=== PATIENT | male | born 1960 | race Caucasian/White ===

== ENCOUNTER → 2023-11-06 09:54 | Outpatient (CLI) | payer OTHER, SELFPAY ==
--- NOTE | 2023-11-06 09:55 | DI.RAD.S_ITS ---
PROCEDURE: XR KNEE LT 3V INDICATIONS: pain/int swelling x 6 weeks TECHNIQUE: 3 views of the knee were acquired. COMPARISON: None. FINDINGS: Bones: No fractures or dislocations. No suspicious bony lesions. There is mild joint space narrowing in the medial compartment and patellofemoral joint. Soft tissues: Small joint effusion. No suspicious soft tissue calcifications. IMPRESSION: 1. No evidence for an acute fracture or dislocation. 2. There is mild joint space narrowing in the medial compartment and patellofemoral joint. Dictated by: Dominik Gomez M.D. on 11/06/2023 at 10:40 Approved by: Dominik Gomez M.D. on 11/06/2023 at 10:45
== END ==
PROVIDERS: PCP Family Medicine; Referring Provider Physician Assistant; Visit Provider Physician Assistant
DX: M25.562 Pain in left knee (principal)
CPT/HCPCS: 73562

== ENCOUNTER → 2024-02-20 07:05 | Outpatient (CLI) | payer OTHER, SELFPAY ==
[2024-02-20 07:58] LABS: Add Manual Diff / Slide Review NO; Basophils Absolute Auto 100 /uL (0-100); Basophils Percent Auto 1.1 % (0-2); Eosinophils Absolute Auto 300 /uL (0-450); Eosinophils Percent Auto 3.9 % (2-4); Hematocrit 47.1 % (41-53); Hemoglobin 15.8 g/dL (13.5-17.5); Lymphocytes Absolute Auto 2400 /uL (1100-4500); Lymphocytes Percent Auto 27.7 % (25-40); Mean Corpuscular HGB Conc 33.6 % (30-36); Mean Corpuscular Hemoglobin 29.9 PG (26-34); Mean Corpuscular Volume 88.9 fL (80-100); Monocytes Absolute Auto 600 /uL (0-900); Monocytes Percent Auto 6.9 % (3-14); Neutrophils Absolute Auto 5100 /uL (1500-7000); Neutrophils Percent Auto 60.4 % (50-75); Platelet Count 342 X10^3/uL (150-400); Red Cell Distribution Width 13.3 % (11.6-14.8); White Blood Cell Count 8.5 X10^3/uL (4.5-11.0)
[2024-02-20 08:09] LABS: Hemoglobin A1C% w Est Avg Glu 5.9 % (4.0-6.0)
[2024-02-20 08:18] LABS: Alanine Aminotransferase 24 IU/L (<50); Albumin 4.3 g/dL (3.5-5.0); Albumin Globulin Ratio 1.8 (1.0-2.8); Alkaline Phosphatase 69 U/L (38-126); Aspartate Aminotransferase 27 IU/L (17-59); BUN Creatinine Ratio 16.7 (6-22); Bilirubin Total 0.6 mg/dL (0.2-1.3); Blood Urea Nitrogen 14 mg/dL (9-20); Calcium 9.6 mg/dL (8.4-10.2); Carbon Dioxide 29 mmol/L (22-32); Chloride 103 mmol/L (98-107); Cholesterol 247 mg/dL (140-199); Estimated Glomerular Filt Rate > 60 mL/min (>60); Globulin 2.4 g/dL (1.7-4.1); Glucose 113 mg/dL (80-110); HDL Cholesterol 60 mg/dL (40-60); HEMOLYSIS < 15 (0-50); LDL Cholesterol Calculated 153 mg/dL (<100); Sodium 135 mmol/L (137-145); Total Protein 6.7 g/dL (6.3-8.2); Triglycerides 172 mg/dL (35-150)
[2024-02-20 08:22] LABS: Rheumatoid Factor 11.8 IU/mL (<12.0)
== END ==
PROVIDERS: PCP Family Medicine; Referring Provider Family Medicine; Visit Provider Family Medicine
DX: Z00.00 Encounter for general adult medical examination without abnormal findings (principal); E78.00 Pure hypercholesterolemia, unspecified; M17.12 Unilateral primary osteoarthritis, left knee; R73.09 Other abnormal glucose; M25.50 Pain in unspecified joint
CPT/HCPCS: 36415; 80053; 80061; 83036; 85025; 86430

== ENCOUNTER → 2024-03-07 10:59 | Outpatient (CLI) | payer OTHER, SELFPAY ==
--- NOTE | 2024-03-07 11:03 | DI.US.S_ITS ---
PROCEDURE: US ABD AORTA ANEURYSM SCREEN INDICATIONS: hx of tobacco use TECHNIQUE: Real time scanning was performed of the aorta and iliac arteries, with image documentation. COMPARISON: None. FINDINGS: Aorta: Proximal aortic diameter measures 2.1 cm. Mid-aorta measures 1.6 cm. Distal aortic diameter is 1.5 cm. Iliac arteries: Right common iliac artery measures 0.8 cm. Left common iliac artery measures 0.8 cm. IMPRESSION: Negative for aneurysm. Dictated by: Hayes Angeles M.D. on 03/07/2024 at 12:28 Approved by: Hayes Angeles M.D. on 03/07/2024 at 12:28
== END ==
LOC: US 11:01
PROVIDERS: PCP Family Medicine; Referring Provider Family Medicine; Visit Provider Family Medicine
DX: Z13.6 Encounter for screening for cardiovascular disorders (principal); Z87.891 Personal history of nicotine dependence
CPT/HCPCS: 76706

== ENCOUNTER → 2024-08-20 06:45 | Outpatient (CLI) | payer OTHER, SELFPAY ==
[2024-08-20 08:03] LABS: Hemoglobin A1C% w Est Avg Glu 5.7 % (4.0-6.0)
[2024-08-20 08:04] LABS: Cholesterol 197 mg/dL (140-199); HDL Cholesterol 58 mg/dL (40-60); LDL Cholesterol Calculated 120 mg/dL (<100); Triglycerides 96 mg/dL (35-150)
== END ==
LOC: LAB 06:47
PROVIDERS: PCP Family Medicine; Referring Provider Family Medicine; Visit Provider Family Medicine
DX: R73.03 Prediabetes (principal); E78.00 Pure hypercholesterolemia, unspecified; Z87.891 Personal history of nicotine dependence
CPT/HCPCS: 36415; 80061; 83036

== ENCOUNTER 2024-09-15 06:34 | Day surgery (SDC) | payer OTHER, SELFPAY ==
[2024-09-11 07:16] VITALS: BMI 23.1
[2024-09-15 06:51] VITALS: BMI 22.7
[2024-09-15 06:57] VITALS: BP 120/73; PULSE 66; RESP 16; TEMP 36.3; O2SAT 96
[2024-09-15] MEDS: ACETAMINOPHEN 325 MG TABLET 975 MG PO (07:05)
[2024-09-15] MEDS: LACTATED RINGERS 1,000 ML 42 ML IV (07:05)
[2024-09-15] MEDS: ALBUTEROL/IPRATROPIUM 3 ML AMPUL INH (07:07)
--- NOTE | 2024-09-15 07:25 | PM.PREOP ---
Pre-operative Note Interval Note History & Physical reviewed/Exam performed by Physician: Yes Changes to H&P: No
[2024-09-15] MEDS: CEFAZOLIN 2 GM/100 ML PREMIX 100 ML IV (07:50)
--- NOTE | 2024-09-15 08:06 | SUR.OPER ---
Supine on padded OR bed, head on pillow, right arm secured on padded arm board at <90 degrees abduction, left arm resting on padded arm table, legs uncrossed, safety belt at thigh, tape over blanket over lower legs.
[2024-09-15] MEDS: BUPIVACAINE 0.25% (PF) VIAL 30 ML INJ (08:14)
[2024-09-15] MEDS: LIDOCAINE 1% W/EPI 10ML 20 ML INJ (08:14)
[2024-09-15 08:27] VITALS: BP 112/66; PULSE 75; RESP 16; TEMP 36.2; O2SAT 95
[2024-09-15 08:32] VITALS: BP 110/70; PULSE 73; RESP 16; O2SAT 98
--- NOTE | 2024-09-15 08:36 | P.OP_ITS ---
Operative Date/Time/Diagnoses Date of procedure: 09/15/24 Time of procedure: 08:36 Pre-op diagnosis: Left Index Finger Trigger Finger Release Post-op diagnosis: same Procedure & Clinicians Procedure: Left Index Finger Trigger Finger Release Same procedure as scheduled: Yes Surgeon: Kong Hong Anesthesia Type: Sedation Operative Notes Findings: Triggering Left Index Finger Closure Type: primary Estimated Blood Loss (mL): 3 Procedure in detail: Fingers Released: Left index finger Preoperative diagnosis: Stenosing Tenosynovitis of the Above Digits Procedure performed: A1 Stanislaw Release of the Above Digits Postoperative diagnosis: Same Primary Surgeon: Kong Hong MD Secondary Surgeon: None Anesthesia: General EBL: 3 ml Tourniquet: 16 minutes @ 250 mmHg Indication For Surgery: Patient presented with triggering and pain of the affected digits. Conservative treatment did not improve symptoms to an acceptable level. The risks, benefits, and alternatives were discussed. Risks include pain, bleeding, infection, damage to nearby structures, tendon damage, nerve damage, blood vessel damage, wound healing complications, lack of symptom relief, need for further surgery, DVT, PE, stroke, and . Written consent was obtained. Operative Findings: Thickened A1 stanislaw of the affected digits. Triggering resolved after A1 satnislaw release. Procedure in Detail: The patient was met in the pre-operative hold area. Consent was verified and operative extremity was signed. Local anesthesia was 5cc 1% lidocaine with epi injected. The patient then met with anesthesia and was brought back to the operating room. The patient was placed supine on the operating table. Anesthetic was administered. The extremity was then prepped and draped in the usual sterile fashion. A timeout was performed per protocol. All were in agreement and we proceeded. Local anesthesia was tested with a sharp adson pickup and found to be adequate. A longitudinal incision was made at the level of the A1 pully overlying the affected digit. Blunt dissection was made with scissors down to the tendon sheath and the tissues were spread in line with the tendon and neurovascular st ructures. 3 blunt retractors were placed and the A1 stanislaw was identified. The A1 stanislaw was cut sharply with a knife from the distal to the proximal edge. A complete release was confirmed with the use of an elevator. Synovitis and thickening of the tendons were seen underneath it. The finger was then flexed and extended without any catching. The wound was irrigated copiously and closed with horizontal mattress sutures. A sterile dressing was applied. Postoperative Protocol: Same day discharge Soft dressing Unlimited finger flexion and extension Remove dressing when you return to the clinic No firm gripping for 2 weeks Sutures out at 2 weeks Manual labor at 4 weeks Kong Hong MD Complications: none
[2024-09-15 08:37] VITALS: BP 112/70; PULSE 74; RESP 16; O2SAT 98
[2024-09-15 08:42] VITALS: BP 109/65; PULSE 77; RESP 16; TEMP 36.1; O2SAT 98
== END 2024-09-15 08:55 | disposition home or self-care (01) ==
PROVIDERS: PCP Family Medicine; Referring Provider Orthopaedic Surgery; Visit Provider Orthopaedic Surgery
PROC: (CPT 26055; principal; 2024-09-15 07:45)
DX: M65.322 Trigger finger, left index finger (principal)
CPT/HCPCS: 26055; J0690; J2250; J3010